=== PATIENT | female | born 1955 | race Caucasian/White ===

== ENCOUNTER 2019-02-15 10:33 | Outpatient (CLI) | payer BC ==
[~2019-02-15 10:33] MED LIST: AZIT250T PO; LIP10 PO
== END 2019-02-15 20:34 | disposition home or self-care (01) ==
LOC: SMA 10:33
DX: Z12.31 Encounter for screening mammogram for malignant neoplasm of breast (principal)
CPT/HCPCS: 77067

== ENCOUNTER 2023-08-05 09:53 | Outpatient (CLI) | payer MEDICARE, OTHER ==
[~2023-08-05 09:53] MED LIST changes: -AZIT250T PO; +ZIT250 PO
== END 2023-08-05 18:58 | disposition home or self-care (01) ==
LOC: SMA 09:53
DX: Z12.31 Encounter for screening mammogram for malignant neoplasm of breast (principal)
CPT/HCPCS: 77067